=== PATIENT | female | born 1980 | race Caucasian/White ===

== ENCOUNTER 2021-10-13 08:49 | Emergency (ER) | payer OTHER ==
[~2021-10-13] VITALS: Ht 162.6 cm; Wt 75.0 kg
[2021-10-13 08:59] VITALS: TEMP 98.1
[2021-10-13 10:22] VITALS: BP 106/71; PULSE 70
== END 2021-10-13 10:22 | disposition home or self-care (01) ==
LOC: COL.ER 08:49
DX: S09.93XA Unspecified injury of face, initial encounter (principal); W22.8XXA Striking against or struck by other objects, initial encounter; Y92.59 Other trade areas as the place of occurrence of the external cause; Y99.0 Civilian activity done for income or pay